=== PATIENT | female | born 1995 | race African-American/Black ===

== ENCOUNTER 2021-02-08 19:02 | Emergency (ER) | payer SELFPAY ==
[~2021-02-08] VITALS: Ht 175.3 cm; Wt 74.0 kg
[2021-02-08 20:35] VITALS: BP 125/71
[2021-02-08 21:00] LABS: BILIRUBIN,URINE NEGATIVE (NEG); CLARITY,URINE CLEAR; COLOR,URINE YELLOW; NITRITE,URINE POSITIVE (NEG); PH,URINE 7.5 (<5.0-8.0); PROTEIN,URINE NEGATIVE (NEG-TRACE); UROBILINOGEN,URINE 0.2 mg/dL (0.2 mg/dL)
[2021-02-08 21:04] LABS: BACTERIA,URINE MANY /HPF (0-FEW); RBC,URINE 0 /HPF (0-2); WBC,URINE >40 /HPF (0-4)
[2021-02-08 21:16] LABS: INFLUENZA A PATIENT NEGATIVE (NEGATIVE); INFLUENZA B PATIENT NEGATIVE (NEGATIVE)
--- NOTE | 2021-02-08 21:36 | RAD ---
Exam: Chest one view INDICATION: Fever TECHNIQUE: Frontal view of the chest Comparisons: None FINDINGS: The cardiomediastinal silhouette and pulmonary vessels are within normal limits. The lung and pleural spaces are clear. IMPRESSION: No acute cardiopulmonary process. Electronically signed by: Gt Greenwood MD (02/08/2021 9:34 PM) NES[facility]
[2021-02-08] MEDS ORDERED: LIDOCAINE 1% PF 2 ML VIAL. INJ ONE (21:45)
[2021-02-08] MEDS ORDERED: cefTRIAXone IM 1 GM VIAL IM ONE (21:45)
[2021-02-08] MEDS ORDERED: CEPH500T PO (22:28)
--- NOTE | 2021-02-08 22:30 | PHYS DOC ---
Past Medical History Past Surgical History: No Surgical History General Adult EDM: Chief Complaint: FEVER HPI: HPI: Patient is a 26 year old female who presents to the ED today with fever cough and body aches, symptoms for 1 week. Patient states today she was vomiting. Patient is unvaccinated against COVID-19. Review of Systems: Review of Systems: Constitutional: Reports fever, reports body aches Eyes: Denies change in visual acuity. [] HENT: Denies nasal congestion or sore throat. [] Respiratory: Reports cough, denies shortness of breath. [] Cardiovascular: Denies chest pain or edema. [] GI: Denies abdominal pain, nausea, vomiting, bloody stools or diarrhea. [] : Denies dysuria. [] Musculoskeletal: Denies back pain or joint pain. [] Integument: Denies rash. [] Neurologic: Denies headache, focal weakness or sensory changes. [] Psychiatric: Denies depression or anxiety. [] Heart Score: C/O Chest Pain: N/A Risk Factors: Risk Factors: DM, Current or recent (<one month) smoker, HTN, HLP, family history of CAD, obesity. Risk Scores: Score 0 - 3: 2.5% MACE over next 6 weeks - Discharge Home Score 4 - 6: 20.3% MACE over next 6 weeks - Admit for Clinical Observation Score 7 - 10: 72.7% MACE over next 6 weeks - Early Invasive Strategies Current Medications: Current Medications Medications (Trade) Dose Ordered Sig/[place] Start Time Stop Time Status Last Admin Dose Admin Ceftriaxone Sodium (Rocephin Im) 1 gm 1X ONCE 02/08/21 21:45 02/08/21 21:46 DC 02/08/21 22:15 1 GM Lidocaine HCl (Xylocaine-Mpf 1% 2ml Vial) 2 ml 1X ONCE 02/08/21 21:45 02/08/21 21:46 DC 02/08/21 22:15 2 ML Allergies: Allergies: Allergies Coded Allergies Type Severity Reaction Last Updated Verified No Known Drug Allergies 02/08/21 No Physical Exam: PE: Constitutional: Well developed, well nourished, no acute distress, non-toxic appearance. [] HENT: Normocephalic, atraumatic, bilateral external ears normal, oropharynx moist, no oral exudates, nose normal. [] Eyes: PERRLA, EOMI, conjunctiva normal, no discharge. [] Neck: Normal range of motion, no tenderness, supple, no stridor. [] Cardiovascular:Heart rate regular rhythm, no murmur [] Lungs & Thorax: Bilateral breath sounds clear to auscultation [] Abdomen: Bowel sounds normal, soft, no tenderness, no masses, no pulsatile masses. [] Skin: Warm, dry, no erythema, no rash. [] Back: No tenderness, no CVA tenderness. [] Extremities: No tenderness, no cyanosis, no clubbing, ROM intact, no edema. [] Neurologic: Alert and oriented X 3, normal motor function, normal sensory function, no focal deficits noted. [] Psychologic: Affect normal, judgement normal, mood normal. [] Current Patient Data: Labs: Laboratory Tests Test 02/08/21 20:48 02/08/21 20:51 Urine Collection Type Unknown Urine Color Yellow Urine Clarity Clear Urine pH 7.5 (<5.0-8.0) Urine Specific [place] 1.015 (1.000-1.030) Urine Protein Negative mg/dL (NEG-TRACE) Urine Glucose (UA) Negative mg/dL (NEG) Urine Ketones (Stick) Negative mg/dL (NEG) Urine Blood Negative (NEG) Urine Nitrite Positive (NEG) Urine Bilirubin Negative (NEG) Urine Urobilinogen Dipstick 0.2 mg/dL (0.2 mg/dL) Urine Leukocyte Esterase Small (NEG) Urine RBC 0 /HPF (0-2) Urine WBC >40 /HPF (0-4) Urine Squamous Epithelial Cells Mod /LPF Urine Bacteria Many /HPF (0-FEW) Urine Mucus Marked /LPF Influenza Type A Antigen Negative (NEGATIVE) Influenza Type B Antigen Negative (NEGATIVE) SARS-CoV-2 Antigen (Rapid) Negative (NEGATIVE) POC Urine HCG, Qualitative Hcg negative (Negative) Vital Signs: Vital Signs Date Time Temp Pulse Resp B/P (MAP) Pulse Ox O2 Delivery O2 Flow Rate FiO2 02/08/21 20:35 99.8 99 18 125/71 (89) 98 Room Air 99.8 EKG: EKG: [] Radiology/Procedures: Radiology/Procedures: []PROCEDURE: CHEST AP ONLY Exam: Chest one view INDICATION: Fever TECHNIQUE: Frontal view of the chest Comparisons: None FINDINGS: The cardiomediastinal silhouette and pulmonary vessels are within normal limits. The lung and pleural spaces are clear. IMPRESSION: No acute cardiopulmonary process. Electronically signed by: Gt Villa MD (02/08/2021 9:34 PM) [facility] DICTATED and SIGNED BY: GT VILLA MD DATE: 02/08/21 [id number] 0 Course & Med Decision Making: Course & Med Decision Making Pertinent Labs and Imaging studies reviewed. (See chart for details) This is a 26-year-old female patient presented to the ED today with fever body aches and chills that began a week ago, vomiting that began today. Vitals on arrival to the ED temperature 99.8, heart rate 99 O2 sats 98% on room air, blood pressure 125/71 with respiration of 18 Chest x-ray is negative for any acute findings, negative rapid Covid test. Positive for UTI given Rocephin 1 g in the ED, discharged on cephalexin. Follow-up with PCP. Krystal Disclaimer: Krystal Disclaimer: This electronic medical record was generated, in whole or in part, using a voice recognition dictation system. Departure Departure Impression: Primary Impression: UTI (urinary tract infection) Qualified Codes: N39.0 - Urinary tract infection, site not specified Additional Impressions: Fever Qualified Codes: R50.9 - Fever, unspecified Vomiting Qualified Codes: R11.10 - Vomiting, unspecified Person under investigation for COVID-19 Disposition: 01 HOME / SELF CARE / HOMELESS Condition: STABLE Referrals: NO PCP (PCP) Patient Instructions: Fever, Adult, Urinary Tract Infection Additional Instructions: You have urinary tract infection. Please take the prescribed medications as ordered until completed. Follow-up with your doctor in 1 week. Your Covid PCR test is pending, please quarantine yourself until we get results, we will call you when the back Scripts Cephalexin (CEPHALEXIN) 500 Mg Tablet 1 TAB PO BID, #14 TAB Prov: MERVIN HEART APRN 02/08/21 MERVIN HEART APRN Feb 08, 2021 22:30
--- NOTE | 2021-02-09 15:12 | NUR ---
IP: Attempted to contact pt concerning covid results. No answer, left a voicemail to return the call.
== END 2021-02-08 22:33 | disposition home or self-care (01) ==
LOC: ER 19:02
DX: N39.0 Urinary tract infection, site not specified (principal); Z20.822 Contact with and (suspected) exposure to COVID-19; R11.10 Vomiting, unspecified; R50.9 Fever, unspecified
CPT/HCPCS: 71045; 81001; 81025; 87077; 87086; 87186; 87426; 87804; 96372; 99284; J0696; J3490; U0003; U0005; 99283